=== PATIENT | female | born 2000 | race African-American/Black ===

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

== ENCOUNTER 2018-11-08 14:09 | Emergency (ER) | payer OTHER ==
[~2018-11-08] VITALS: Ht 163.8 cm; Wt 64.0 kg
[~2018-11-08 14:09] MED LIST changes: +FLEXERIL PO; +KYLEENA; +MOTRIN800 MG PO
[2018-11-08] MEDS ORDERED: GENTAK0.32 OS (15:18)
[2018-11-08 15:20] VITALS: BP 111/67
== END 2018-11-08 15:20 | disposition home or self-care (01) | DRG 125 ==
LOC: ED 14:09
DX: H10.9 Unspecified conjunctivitis (principal)

== ENCOUNTER 2019-07-02 | Emergency (ER) | payer OTHER ==
[~2019-07-02] MED LIST changes: +GENTAK0.32 OS
[2019-07-02 23:08] LABS: URINE BILIRUBIN - DIPSTICK NEGATIVE (NEGATIVE); URINE BLOOD DIPSTICK LARGE (NEGATIVE); URINE COLOR YELLOW; URINE GLUCOSE - DIPSTICK NEGATIVE (NEGATIVE); URINE KETONE NEGATIVE (NEGATIVE); URINE PH 6.5 (4.5-8.0); URINE PROTEIN - DIPSTICK 100 mg/dL (NEG-TRACE); URINE SPECIFIC GRAVITY 1.025; URINE UROBILINOGEN - DIPSTICK 0.2 E.U./dL (0.2)
[2019-07-02 23:10] LABS: URINE LEUK ESTERASE MODERATE (NEGATIVE); URINE NITRITE - DIPSTICK POSITIVE (Negative)
[2019-07-02 23:18] LABS: URINE BACTERIA RARE hpf; URINE SQUAMOUS EPITHELIAL CELL FEW EPI/hpf (0-FEW); URINE WBC 50-100 WBC/hpf (0-5)
[2019-07-02] MEDS ORDERED: BACTRIM DS1 TAB PO (23:23)
== END 2019-07-02 23:48 | disposition home or self-care (01) | DRG 690 ==
PROVIDERS: Family Medicine
DX: N30.00 Acute cystitis without hematuria (principal); B96.20 Unspecified Escherichia coli [E. coli] as the cause of diseases classified elsewhere